=== PATIENT | female | born 1975 | race Caucasian/White ===

== ENCOUNTER 2016-11-21 10:18 | Emergency (ER) | payer BC ==
[2016-11-21 10:36] VITALS: BP 145/91
--- NOTE | 2016-11-21 11:14 | UC ---
Head Injury HPI - HPI Summary HPI Summary: HIT IN THE RIGHT SIDE OF FOREHEAD LAST NIGHT WHILE PLAYING SOFTBALL. NO LOC. DID NOT FALL DOWN. DID NOT HIT HEAD ON THE GROUND. FELT FINE INITIALLY BUT WOKE UP THIS MORNING WOTH SOME FATIGUE, NAUSEA AND DIZZINESS. MILD SANCHEZ. NO VISUAL DISTURBANCE. MADE AN APPT WITH PA AT [place] BUT RECEIVED A CALL CANCELLING THE APPT DUE TO THEIR LACK OF CT SCANNER. - History Of Current Complaint Chief Complaint: UCHeadInjury Stated Complaint: HEAD INJURY Time Seen by Provider: 11/21/16 11:11 Hx Obtained From: Patient Hx Last Menstrual Period: 2 months ago, esure Onset/Duration: Sudden Onset, Lasting Hours, Still Present Severity Currently: None Severity Initially: Mild Pain Intensity: 2 Pain Scale Used: 0-10 Numeric Character: Dull Aggravating Factor(s): Nothing Alleviating Factor(s): Nothing Associated Signs And Symptoms: Positive: Nausea. Negative: LOC (Time In Secs./ Mins/Hrs), LOC Duration Unknown, Confusion, Memory Loss, Seizure, Epistaxis, Dental Malocclusion, Neck Pain, Vomiting - Allergies/Home Medications Allergies/Adverse Reactions: Allergies Allergy/AdvReac Type Severity Reaction Status Date / Time Codeine Allergy DIZZINESS, Verified 11/30/12 10:33 NAUSEA PMH/Surg Hx/FS Hx/Imm Hx Endocrine History Of: Reports: Diabetes - WITH BOTH PREGNANCYS Denies: Thyroid Disease Cardiovascular History Of: Denies: Cardiac Disorders, Hypertension Respiratory History Of: Denies: COPD, Asthma GI/ History Of: Denies: Ulcer Neurological History Of: Reports: Migraine - IN THE PAST - Surgical History Surgical History: None - Family History Known Family History: Positive: Cardiac Disease, Diabetes - Social History Alcohol Use: Occasionally Substance Use Type: None Smoking Status (MU): Never Smoked Tobacco Review of Systems Constitutional: Fatigue Eyes: Negative Respiratory: Negative Cardiovascular: Negative Gastrointestinal: Other - NAUSEA Neurological: Headache, Other - DIZZY All Other Systems Reviewed And Are Negative: Yes Physical Exam Triage Information Reviewed: Yes Appearance: Well-Appearing, No Pain Distress, Well-Nourished Vital Signs: Initial Vital Signs Temp 97.7 F 11/21/16 10:30 Pulse 75 11/21/16 10:30 Resp 18 11/21/16 10:30 BP 145/91 11/21/16 10:30 Pulse Ox 98 11/21/16 10:30 Vital Signs Reviewed: Yes Eyes: Positive: Conjunctiva Clear ENT: Positive: Hearing grossly normal, Pharynx normal, TMs normal Neck: Positive: Supple, Nontender, No Lymphadenopathy Respiratory Exam: Normal Cardiovascular Exam: Normal Abdomen Description: Positive: Soft Musculoskeletal: Positive: No Edema Neurological: Positive: Alert, Other: - CN II-XII GROSSLY INTACT BILATERALLY. NEG PRONATOR DRIFT. FINGER TO NOSE INTACT BILATERALLY. HEEL TO TEJADA INTACT BILATERALLY. RAPID ALTERNATING MVMTS INTACT. 5/5 STRENGTH Psychological: Positive: Normal Response To Family, Age Appropriate Behavior Skin: Negative: rashes Head Injury Course/Dx - Course Course Of Treatment: NO INDICATION FOR CT SCAN TODAY. PT TO SEEK FOLLOW-UP IF NOT RECOVERING EXPECTED. - Differential Dx/Diagnosis Provider Diagnoses: CONCUSSION Discharge - Discharge Plan Condition: Stable Disposition: HOME Prescriptions: Meclizine HCl [Meclizine 25] 25 mg PO TID PRN #30 tab PRN Reason: Dizziness Patient Education Materials: Concussion (ED) Referrals: Stacie Harper MD [Primary Care Provider] - If Needed Additional Instructions: YOUR SYMPTOMS WILL HOPEFULLY BE MUCH IMPROVED OVER THE NEXT 2-3 DAYS. OKAY FOR IBUPROFEN OR TYLENOL FOR SANCHEZ. NO INDICATION FOR CT SCAN TODAY. SEEK FOLLOW-UP IF YOUR SYMPTOMS ARE NOT IMPROVING EXPECTED. AVOID PROLONGED SCREEN TIME. STAY WELL HYDRATED AND RESTED. GO TO THE ER WITHOUT FAIL IF YOU DEVELOP UNEQUAL PUPILS, VISUAL DISTURBANCE, GAIT INSTABILITY, SPEECH DIFFICULTY, NAUSEA/VOMITING, WORSENING HEADACHE, DIZZINESS, CONFUSION, WEAKNESS OR ANY OTHER CONCERNING SYMPTOMS. [facility] CONCUSSION MANAGEMENT
== END 2016-11-21 11:44 | disposition home or self-care (01) ==
LOC: UCEAST 10:18
DX: S06.0X9A Concussion with loss of consciousness of unspecified duration, initial encounter (principal); E11.9 Type 2 diabetes mellitus without complications; G43.909 Migraine, unspecified, not intractable, without status migrainosus; Z88.5 Allergy status to narcotic agent
CPT/HCPCS: 99201; G0463

== ENCOUNTER 2018-11-11 07:08 | Observation (INO) | payer BC ==
[~2018-11-11 07:08] MED LIST: Buffered Lidocaine 1% SYRIN* 1 ML/SYRINGE INTRADERM ONE; Dexamethasone IV* 4 MG/ML 1 ML (4 MG) IV SLOW PU ONE; Famotidine TAB* 20 MG PO ONE; Lactated Ringers 1000 ML Bag* 1,000 ML IV SCH; Scopolamine 1.5 mg* PATCH TRANSDERM SCH
[2018-11-11] MEDS ORDERED: Scopolamine 1.5 mg* PATCH ONE (07:30)
[2018-11-11] MEDS ORDERED: Buffered Lidocaine 1% SYRIN* 1 ML/SYRINGE INTRADERM ONE (07:30)
[2018-11-11] MEDS ORDERED: Famotidine TAB* 20 MG ONE (07:30)
[2018-11-11] MEDS ORDERED: Dexamethasone IV* 4 MG/ML 1 ML (4 MG) ONE (07:30)
[2018-11-11] MEDS ORDERED: ceFAZolin 2 GM PREMIX in ORs 2 GM/50 ML BAG IVPB ONE (07:32)
[2018-11-11] MEDS ORDERED: Bupivacaine 0.5% W/EPI SDV* 30 ML VIAL ONE (07:46)
[2018-11-11] MEDS ORDERED: fentaNYL* 50 MCG/ML 5 ML VIAL (250 MCG VIAL) ONE (08:04)
[2018-11-11] MEDS ORDERED: Rocuronium* 10 MG/ML VIAL ONE ×2 (08:04→09:54)
[2018-11-11] MEDS ORDERED: Propofol* 10 MG/ML 20 ML BTL ONE (08:05)
[2018-11-11] MEDS ORDERED: Midazolam* 1 MG/ML 2 ML VIAL (2 MG) ONE (08:05)
[2018-11-11] MEDS ORDERED: Lidocaine 2% PF * 5 ML VIAL ONE (08:05)
[2018-11-11] MEDS ORDERED: EPHEDrine (Pressors)* 50 MG/ML VIAL ONE (09:30)
[2018-11-11] MEDS ORDERED: Metoclopramide IV* 5 MG/ML 2 ML VIAL ONE (10:32)
[2018-11-11] MEDS ORDERED: Ondansetron INJ* 2 MG/ML VIAL ONE (11:09)
[2018-11-11] MEDS ORDERED: PROCHLORPERAZINE INJ 5 MG/ML 2 ML VIAL IV PRN (11:15)
[2018-11-11] MEDS ORDERED: HYDROmorphone INJ1* 1 MG/ML SYRINGE IV PRN ×2 (11:15→11:41)
[2018-11-11] MEDS ORDERED: Naloxone* 0.4 MG/ML 1 ML VIAL IV PRN (11:15)
[2018-11-11] MEDS ORDERED: oxyCODONE TAB* 5 MG TAB PO PRN (11:15)
[2018-11-11] MEDS ORDERED: DiMENhydriNATE IV* 50 MG/ML VIAL IV PUSH PRN (11:15)
[2018-11-11] MEDS ORDERED: Acetaminophen IV 1GM/100ML * 1,000 MG/100 ML VIAL IVPB ONE (11:15)
[2018-11-11] MEDS ORDERED: Ketorolac INJ* 30 MG/ML 1 ML VIAL IV PRN (11:41)
[2018-11-11] MEDS ORDERED: Ondansetron INJ* 2 MG/ML VIAL IV PRN (11:41)
[2018-11-11] MEDS ORDERED: oxyCODONE/Acetamin 5/325 MG* TAB PO PRN ×2 (11:41→18:31)
[2018-11-11] MEDS ORDERED: Acetaminophen IV 1GM/100ML * 100 ML ONE (11:48)
[2018-11-11] MEDS ORDERED: fentaNYL* 50 MCG/ML 2 ML VIAL (100 MCG VIAL) ONE (11:58)
[2018-11-11] MEDS: fentaNYL* 50 MCG/ML 2 ML VIAL (100 MCG VIAL) IV PRN ×3 (11:59→12:16)
[2018-11-11] MEDS ORDERED: Lactated Ringers 1000 ML Bag* 1,000 ML IV SCH (16:00)
[2018-11-11] MEDS: Ibuprofen TAB* 600 MG PO PRN (17:20)
[2018-11-11 17:53] LABS: ABS Lymphocytes 0.8 10^3/ul (1.0-4.8); ABS Monocytes 0.3 10^3/ul (0-0.8); ABS Neutrophils 10.2 10^3/ul (1.5-7.7); Hematocrit 37 % (35-47); Lymphocyte % 6.9 %; Mean Corpuscular HGB Conc 32 g/dL (31-36); Mean Corpuscular Hemoglobin 27 pg (27-31); Mean Corpuscular Volume 84 fL (80-97); Mean Platelet Volume 7.8 fL (7.4-10.4); Platelet Count 321 10^3/uL (150-450); Red Blood Count 4.42 10^6 /uL (3.70-4.87); Red Cell Distribution Width 16 % (10.5-15); White Blood Count 11.2 10^3/uL (3.5-10.8)
--- NOTE | 2018-11-11 22:59 | OP ---
DATE OF OPERATION: 11/11/18 - ROOM #338 DATE OF : 79 SURGEON: Dr. Dominguez. CYLINDER DYER: Dr. Rendon. ANESTHESIA: General endotracheal tube. PRE-OP DIAGNOSES: Leiomyoma uteri and pelvic pain. POST-OP DIAGNOSES: Leiomyoma uteri and pelvic pain. OPERATIVE PROCEDURES: Laparoscopic supracervical hysterectomy and bilateral salpingectomy. COMPLICATIONS: None. ESTIMATED BLOOD LOSS: 50 cc. SPECIMENS: Include uterine tubes. The weight was 360 g. FINDINGS: On laparoscopy, the anterior bladder flap appeared normal. The cul-de -sac appeared normal. The appendix and liver surface appeared normal. The uterus contained a large, approximately 6 cm, broad ligament fibroid on the right distorting the uterus to the left and displacing the cervix to the right. DESCRIPTION OF PROCEDURE: The patient was identified, procedure identified as a laparoscopic supracervical hysterectomy and bilateral salpingectomy. The patient was taken to the operating room, prepped and draped in the usual fashion in the dorsal lithotomy position under general anesthesia. A Ding catheter was placed and a NoveloView manipulator was placed in through the cervical canal. A small infraumbilical incision was made and carried down through fat, fascia, and peritoneum. The GelPOINT was placed first with the Sonia through the incision and then, this was taken down and the rest of the GelPOINT trocars were placed in the GelPOINT and the abdomen was insufflated to 50 mmHg. Using the 5 mm 30-degree scope, the right fallopian tube using the LigaSure was cauterized and then incised down to the level of the ovarian ligament. This was incised using the LigaSure and the round ligament was cauterized and then incised as well. A bladder flap was created via sharp and blunt dissection to the midline. The left uterine vessels were identified and cauterized using the LigaSure. The same procedure was carried out on the right , initially starting with the right fallopian tube and cauterizing and incising that along the broad ligament and the mesosalpinx to the level of the ovarian ligament. This was incised along with the round ligament using cautery. The bladder flap was then created and dissected off the fibroid on this side and brought down to the level of the cervix. Using constant pressure upwards, the uterine vessels on the right were cauterized and the broad ligament was cauterized and incised, hugging the fibroid and then eventually hugging the cervix. The uterus was then seen to beti with loss of its blood supply. The uterine vessels were incised on the left side as well and good hemostasis was verified. At this point, a SupraLoop was placed. A small 2 cm incision was made 2 cm above the pubic symphysis and a small 5 mm trocar was placed under direct visualization. The SupraLoop was placed through this lower incision and the SupraLoop was manipulated until it surrounded the internal cervical os and at the cervicouterine junction using a 100 of pure cut after the bowel had been inspected and found to be distal from the site of cautery. The uterine manipulator was removed and using a 100 of pure cut, the cervix was excised from the uterine body. The uterus was then placed within a bag and brought up through the GelPOINT incision and an open technique was utilized to morcellate the uterus through this small incision, placing constant traction and morcellating using the scissors and the knife. This was done until the whole uterus was excised as well as the fibroid. The bag was found to be intact and removed from the abdomen. The abdomen was inspected using the GelPOINT and the laparoscopic end and found to be hemostatic. Copious irrigation was utilized and suctioned out. All instruments were removed from the abdomen. The abdomen was deflated of CO2. The fascia was then closed using 0 Polysorb in a running fashion and the skin was closed with 3-0 Vicryl in a subcuticular fashion and the skin was then reapproximated also with glue. All sponge and instrument counts were correct. The sponge stick was removed from the vagina that was used for manipulation and the patient returned to the recovery room in stable condition. [id number]/[facility] [place] #: [id number] [facility] HOSPITALLeonides
[2018-11-12] MEDS: Ibuprofen TAB* 600 MG PO PRN (08:12)
[2018-11-12 12:42] VITALS: BP 122/68
--- NOTE | 2018-11-12 12:59 | PN ---
Progress Note - Progress Note Date of Service: 11/12/18 SOAP: Subjective: [pt sans complaints + flatus and appetite. somne abdominal soreness] Objective: [vss afebrile abdomen soft notender nondistended. incision c/D/I + bowel sounds ext nontender] Assessment: [POD#1 s/p supracervical hysterectomy doiung well] Plan: [home with instructions ]
== END 2018-11-12 12:30 | disposition home or self-care (01) ==
LOC: OR 07:08 → SSU 11:41
PROVIDERS: ADMIT Obstetrics & Gynecology; ATTEND Obstetrics & Gynecology
DX: D25.9 Leiomyoma of uterus, unspecified (principal); R10.2 Pelvic and perineal pain; Z87.891 Personal history of nicotine dependence
CPT/HCPCS: 36415; 81025; 85025; 88307; 96374; 96375; A9270-GY; G0378; J0690; J1100; J1885; J2250; J2405; J2704; J2765; J3010